=== PATIENT | male | born 1985 | race Caucasian/White ===

== ENCOUNTER 2018-04-03 08:06 | Inpatient (IN) | payer OTHER ==
[2018-04-03] VITALS (23 sets, daily range): BP systolic 80–147; BP diastolic 50–99
--- NOTE | ~2018-04-03 | PR ---
[place], [place] PROGRESS NOTE NAME: [id number] UNIT #: [id number] ROOM: [facility] DOCTOR: RYAN WEAVER MD BIRTHDATE: [birth year] DOS: 04/06/2018 CARDIOLOGY PROGRESS NOTE SUBJECTIVE: The patient was seen at his bedside in the Intensive Care Unit today. He looks somewhat more distressed today than he did yesterday and seems more fatigued. He states that it is a lot of work for him to breathe. After several discussions, it has been decided that he should be transferred to a tertiary care center and he has chosen [facility]. PHYSICAL EXAMINATION: VITAL SIGNS: Today, his pulse is 70 and regular, blood pressure is 105/76. He is afebrile. NECK: Supple. LUNGS: Respirations are per ventilator. He does have coarse breath sounds bilaterally. HEART: Has a regular rhythm with an S4 gallop. He has grade 2/6 systolic murmur along the left sternal border. There are no diastolic murmurs. ABDOMEN: Soft and normally active. EXTREMITIES: Showed trace edema. LABORATORY DATA: White count is 13,100, hemoglobin 8.0. Sodium 143, potassium 3.7, BUN 13, creatinine 0.43. IMPRESSION: 1. Pseudomonas pneumonia. 2. Dilated cardiomyopathy. It is not clear at this point whether this is an ischemic or a nonischemic cardiomyopathy, although a nonischemic cardiomyopathy seems more likely. 3. Gram-positive bacteremia with infected PICC line. PLAN: For now, supportive care is all we could offer from a cardiac standpoint. He is certainly not a candidate for surgical intervention if he would be found to have endocarditis. Accordingly, I would suggest aggressive efforts to manage his infections and stabilize him otherwise. The first goal will be to establish adequate IV access and he is being transferred to [facility] to accomplish this. We thank the hospitalist physicians for asking our advice regarding his care. [place], [place] PROGRESS NOTE NAME: LIZ MURILLO [place] UNIT #: [id number] ROOM: [facility] DOCTOR: RYAN WEAVER MD BIRTHDATE: [birth year] RYAN WEAVER MD CM:PNTRANS [id number] RYAN WEAVER MD 04/10/18 1002 interface
--- NOTE | ~2018-04-03 | EKG ---
[place], [place] ELECTROCARDIOGRAM REPORT NAME: LIZ MURILLO UNIT #: [id number] ROOM: [facility] DOCTOR: YOSEF DRAFT REPORT BIRTHDATE: [birth year] [facility] Test Date: 2018-04-03 Test Time: 15:13:24 Pat Name: LIZ MURILLO Department: Room: [place] [address] Gender: M Applications Developer: Berkley Kamara : 1985 Requested By: RYAN CRABTREE Order Number: [id number] Reading MD: Cristian Hardin MD Measurements Intervals Barnhart Rate: 79 P: 82 SC: 163 QRS: 178 QRSD: 102 T: 86 QT: 427 QTc: 490 Interpretive Statements Poor quality data, interpretation may be affected Pacemaker spikes or artifacts Sinus tachycardia Paired ventricular premature complexes Low voltage with right axis deviation Repol abnrm suggests ischemia, diffuse leads Prolonged QT interval Artifact in lead(s) I,II,III,aVR,aVL,aVF,V1,V2,V3,V4,V5,V6 and baseline wander in lead(s) III,aVF,V3 No previous ECG available for comparison Electronically Signed On 04-04-2018 12:15:21 PST by Cristian Hardin MD CM:EKGRPT:ELECTROCARDIOGRAM REPORT [id number] RYAN NAVAS DRAFT REPORT RYAN CRABTREE
--- NOTE | ~2018-04-03 | PR ---
[place], [place] PROGRESS NOTE NAME[id number] UNIT #: [id number] ROOM: [facility] DOCTOR: GARIMA ALEMAN MD,ASIF BIRTHDATE: [birth year] DOS: 04/06/2018 PULMONARY PROGRESS NOTE SUBJECTIVE: The patient remains on mechanical ventilator without any problems for the last 24 hours. He has been continued on antibiotics for Pseudomonas aeruginosa pneumonia based on the current sensitivity results. Mechanical ventilator satting remains unchanged. The blood culture noted positive for Staph epidermidis at the final results. The family members has asked the patient for transfer to [facility]. The arrangement has been noted in progress. The patient to be transferred to [facility] today. He has been noted with a stable blood pressure, continued on the stress dose with early Cortef. The secretion production has not been noted excessive from the endotracheal aspirate. The oxygen requirement on mechanical ventilator remains the same. The patient was also noted low-grade fever, was noted highest temperature of 99.4 degrees Fahrenheit. The review of systems cannot be completed because of the patient's current traumatic brain injury and current mechanical ventilation. OBJECTIVE: VITAL SIGNS: Temperature 99.6 degree Fahrenheit, respiratory rate 17-18, heart rate of 78-77, blood pressure was 99/66-108/76. Pulse oxygen saturation on 50% oxygen, 98% saturation. HEENT: No new change. Tracheostomy changed in place. CARDIOVASCULAR: S1, S2 audible. LUNGS: The patient was noted with decreased breath sound as previously noted in the right lung. There was no wheezing. ABDOMEN: Soft. PEG tube in place. CENTRAL NERVOUS SYSTEM: Traumatic brain injury, muscle mass loss. The patient has some deformities, which is chronic. VISIBLE SKIN: No lesions or rashes. MENTAL STATUS: At this time, the patient appeared to be somewhat lethargic. LABORATORY DATA: CBC this morning, WBC count 13.1, hemoglobin of 88, platelet count was normal. Blood culture Staph epidermidis from the blood culture. Urinary legionella antigen negative. Respiratory virus panel negative. Two additional sets of blood cultures, which were taken on 04/04/2018 was essentially noted without any bacterial growth. IMPRESSION: 1. The patient with acute respiratory failure with ventilatory support with resistant Pseudomonas aeruginosa. 2. Staph epidermidis bacteremia, most likely contamination, would be considered very likely cause. 3. Chronic traumatic brain injury. 4. Permanent tracheostomy with ventilatory support. 5. 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 6. Cardiomyopathy, which has been known previously, known ischemic. 7. The patient with chronic adrenal insufficiency. [place], [place] PROGRESS NOTE NAME: LIZ MURILLO UNIT #: [id number] ROOM: [facility] DOCTOR: GARIMA ALEMAN MD,ASIF BIRTHDATE: [birth year] PLAN OF MANAGEMENT: No changes from the pulmonary standpoint at this time. Proceed with transfer the patient to the [facility] as planned today. Arrangement has been noted in progress. No changes in the medical management will be needed. Adjustment in antibiotic by the Infectious disease specialist. The patient was started yesterday tobramycin with the Nebulizer treatment, that will be continued. Extended infusion of IV Zosyn for resistant Pseudomonas aeruginosa. Determination possible discontinuation of the vancomycin may be considered. SAIF PAINTING MD CM:PNTRANS [id number] ASIF ALEMAN MD 04/06/18 1305 interface
--- NOTE | ~2018-04-03 | PR ---
[place], [place] PROGRESS NOTE NAME: [id number] UNIT #: [id number] ROOM: [facility] DOCTOR: GARIMA ALEMAN MD,ASIF BIRTHDATE: [birth year] DOS: 04/05/2018 SUBJECTIVE: The patient remains on mechanical ventilator, comfortable, still communicate verbally with that. He has not been noted any hemodynamic instability. He was started on the stress dose of Solu-Cortef yesterday resulting in improvement in the hypotension. Endotracheal secretions had been suctioned out intermittently by the nursing staff. The temperature curve was noted as low-grade. The patient to normal temperature. He has been continued feeding with a pack, which has been replaced recently on this admission as well. The remaining review of systems cannot be completed at this time because of mechanical ventilation use. OBJECTIVE: VITAL SIGNS: Temperature 100.2. The creatinine 99.2 degree Fahrenheit, respiration 16-18, heart rate 77-79, blood pressure of 91/60-99/72. Pulse oxygen saturation recorded as 96% and 50% oxygen on the mechanical ventilator. HEENT: Tracheostomy in place. NECK: Supple. Head was atraumatic. CARDIOVASCULAR: S1, S2 is audible. LUNGS: The patient noted decreased breath sounds on the right lung, but there were no wheezing or crackles. ABDOMEN: Soft, nontender. EXTREMITIES: Without acute edema. MUSCULOSKELETAL: Without acute deformities. CENTRAL NERVOUS SYSTEM: The patient with quadriplegia with a traumatic brain injury. LABORATORY DATA: The culture of the endotracheal aspirate noted with very resistant Pseudomonas aeruginosa. The patient noted intermediate resistance to meropenem and noted sensitive to fluoroquinolones. The BMP that was done this morning, BUN 13, creatinine was normal, glucose 194. CBC this morning; WBC count normal, hemoglobin 7.6 and hematocrit 25.1, platelet count was normal. A 6% segmented neutrophils. Urine culture also noted heavy growth of Proteus mirabilis. The wound culture was noted with evidence of Klebsiella pneumoniae, light growth from the suprapubic area and decubitus wound as well as the backside wound as well. The wound of the left hip for was noted with methicillin-resistant Staphylococcus aureus and Klebsiella pneumoniae. The blood culture were taken n 04/03/2018, one set was noted no bacterial growth and the other one noted gram-positive cocci in clusters. The patient's CT scan of chest was done yesterday noted extensive area of consolidation, infiltration almost all of the right lung was involved in a sparing only the right apex. IMPRESSION: The patient of currently noted with acute respiratory failure with chronic ventilatory support as well and current ventilatory support required for this patient would manage respiratory failure with increased oxygen. 2. Extensive pneumonia with very resistant Pseudomonas aeruginosa well. 3. The patient with anemia of chronic disease, stable. 4. Chronic neurogenic dysphagia. 5. The patient with quadriplegia for this patient as well with a traumatic brain injury, decubitus wound of the left hip for patient in the sacral area as [place], [place] PROGRESS NOTE NAME: LIZ MURILLO UNIT #: [id number] ROOM: [facility] DOCTOR: GARIMA ALEMAN MD,ASIF BIRTHDATE: [birth year] well. PLAN OF TREATMENT: Antibiotic has been adjusted based on the current culture results. Infectious Disease also monitoring the patient for that reason. The patient will be started, tobramycin with the nebulizer formulation twice a day with current Pseudomonas aeruginosa isolation. ____ resistant to multiple antibiotics. The patient would be considered that might for the difficulty of management of Pseudomonas aeruginosa. Continue nutrition support as tolerated. No change in mechanical ventilation be done. Continuation of the Solu-Cortef for the medical management of chronic adrenal insufficiency, current acute infection and sepsis. ASIF PAINTING MD CM:PNTRANS [id number] ASIF ALEMAN MD 04/05/181929 interface
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
[2018-04-03 08:42] LABS: BASO % 0.3 % (0.0-1.0); EOS # 0.4 10*3/uL (0.0-0.4); EOS % 3.7 % (1.0-4.0); HEMATOCRIT 23.6 % (42.0-52.0); HEMOGLOBIN 7.3 g/dl (14.0-18.0); LYMPH # 0.6 10*3/uL (1.3-4.4); MEAN CELL VOLUME 82.5 fl (80.0-94.0); MEAN CORPUSCULAR HGB 25.5 pg (27.0-31.0); MEAN CORPUSCULAR HGB CONC 30.9 g/dl (33.0-37.0); MONO # 0.8 10*3/uL (0.1-1.0); MONO % 8.4 % (3.0-9.0); NEUT # 7.9 10*3/uL (2.3-7.9); NEUT % 81.1 % (47.0-73.0); PLATELET COUNT AUTOMATED 222 10*3/uL (130-400); RED BLOOD COUNT 2.86 10*6/uL (4.50-5.90); RED CELL DISTRI WIDTH 16.7 % (0-14.5); WHITE BLOOD COUNT 9.8 10*3/uL (4.8-10.8)
[2018-04-03 08:55] LABS: BILIRUBIN 1+ (NEGATIVE); BLOOD 3+ (NEGATIVE); CLARITY CLOUDY (CLEAR); COLOR YELLOW (YELLOW); GLUCOSE NEGATIVE (NEGATIVE); KETONE TRACE (NEGATIVE); LEUKO ESTERASE 3+ (NEGATIVE); NITRITE POSITIVE (NEGATIVE); PH 8.5 (5.0-9.0); SPECIFIC GRAVITY 1.015 (1.005-1.030)
[2018-04-03 09:07] LABS: ALBUMIN 2.7 gm/dl (3.1-4.5); ALKALINE PHOSPHATASE 94 U/L (45-117); BUN 19 mg/dl (7-24); CHLORIDE 98 mmol/L (98-107); CREATININE 0.34 mg/dL (0.70-1.30); SGOT/AST 19 IU/L (3-35); SGPT/ALT 32 U/L (12-78); SODIUM 137 mmol/L (136-145); TOTAL PROTEIN 7.9 gm/dL (6.4-8.2)
[2018-04-03 09:13] LABS: BACTERIA 4+; RBC TNTC rbc/hpf (0-2); WBC TNTC wbc/hpf (0-5)
[2018-04-03 12:07] LABS: ABG BASE EXCESS 6.6 mmol/L (-2.0-2.0); ABG HCO3 30.8 mmol/l (22-26); ABG O2 SATURATION 97.5 % (95-97); ARTERIAL BLOOD GAS PCO2 44.4 mmHg (35-45); ARTERIAL BLOOD GAS PH 7.455 (7.35-7.45); ARTERIAL BLOOD GAS PO2 80.1 mmHg (80-90)
[2018-04-03 14:49] LABS: PHOSPHOROUS 3.3 mg/dL (2.5-4.9)
[2018-04-03 14:53] LABS: TROPONIN I 0.199 ng/ml (<0.045)
[2018-04-03] MEDS ORDERED: TYLENOL325 M1 PO (16:34)
[2018-04-03] MEDS ORDERED: ACETADOTE200 MG/1 M NEB ×2 (16:37→16:38)
[2018-04-03] MEDS ORDERED: VENTOLIN 02.5 MG/3 M NEB ×2 (16:42→16:43)
[2018-04-03] MEDS ORDERED: BACLOFEN20 M1 PO (16:45)
[2018-04-03] MEDS ORDERED: DYNA HEX PO (16:47)
[2018-04-03] MEDS ORDERED: COLACE100 MG PO (16:47)
[2018-04-03] MEDS ORDERED: DULCOLAX10 M1 R (16:48)
[2018-04-03] MEDS ORDERED: ELIQUIS5 M1 PO (16:48)
[2018-04-03] MEDS ORDERED: FERROUSAL325 MG PO (16:49)
[2018-04-03] MEDS ORDERED: FLEET ENEMA 13133 ML SC (16:50)
[2018-04-03] MEDS ORDERED: FLUOXETINE HCL10 M1 PO (16:51)
[2018-04-03] MEDS ORDERED: HYDROCORTISONE5 MG PO ×2 (16:52→16:53)
[2018-04-03] MEDS ORDERED: KEPPRA1000 MG PEG (16:55)
[2018-04-03] MEDS ORDERED: HYDROMORPHONE4 MG PO (16:55)
[2018-04-03] MEDS ORDERED: LIDODERM1 EACH T (16:56)
[2018-04-03] MEDS ORDERED: ATIVAN1 MG PO (16:57)
[2018-04-03] MEDS ORDERED: MELATONIN3 MG PO (16:58)
[2018-04-03] MEDS ORDERED: MIDODRINE HCL10 MG PO (16:59)
[2018-04-03] MEDS ORDERED: MELATONIN5 M1 PO (16:59)
[2018-04-03] MEDS ORDERED: MILK OF MA400 MG/52 PO (17:00)
[2018-04-03] MEDS ORDERED: MIRALAX POWDER17 G1 PO (17:01)
[2018-04-03] MEDS ORDERED: NEURONTIN300 MG PO (17:01)
[2018-04-03] MEDS ORDERED: PEPCID20 MG PO (17:02)
[2018-04-03] MEDS ORDERED: SENEXON8.6 M1 PO (17:03)
[2018-04-03] MEDS ORDERED: TRAZODONE100 MG PO (17:04)
[2018-04-03] MEDS ORDERED: ALDACTONE50 M1 PO (17:04)
[2018-04-03] MEDS ORDERED: VITAMIN D5000 UNIT PO (17:05)
[2018-04-03] MEDS ORDERED: ZOFRAN4 MG PO (17:06)
[2018-04-03] MEDS ORDERED: CHLORASEPTIC 1177 ML MM (17:07)
[2018-04-03 18:13] LABS: BASO # 0.1 10*3/uL (0.0-0.1); BASO % 0.5 % (0.0-1.0); EOS # 0.2 10*3/uL (0.0-0.4); EOS % 2.5 % (1.0-4.0); HEMATOCRIT 21.3 % (42.0-52.0); HEMOGLOBIN 6.8 g/dl (14.0-18.0); LYMPH # 0.8 10*3/uL (1.3-4.4); LYMPH % 8.4 % (27.0-41.0); MEAN CELL VOLUME 82.6 fl (80.0-94.0); MEAN CORPUSCULAR HGB 26.4 pg (27.0-31.0); MEAN CORPUSCULAR HGB CONC 31.9 g/dl (33.0-37.0); MONO # 0.8 10*3/uL (0.1-1.0); MONO % 8.1 % (3.0-9.0); NEUT # 7.8 10*3/uL (2.3-7.9); NEUT % 79.9 % (47.0-73.0); PLATELET COUNT AUTOMATED 202 10*3/uL (130-400); RED BLOOD COUNT 2.58 10*6/uL (4.50-5.90); RED CELL DISTRI WIDTH 16.8 % (0-14.5); WHITE BLOOD COUNT 9.7 10*3/uL (4.8-10.8)
[2018-04-04] VITALS (12 sets, daily range): BP systolic 81–99; BP diastolic 51–69
[2018-04-04 00:28] LABS: BASO % 0.4 % (0.0-1.0); EOS # 0.3 10*3/uL (0.0-0.4); EOS % 2.8 % (1.0-4.0); HEMATOCRIT 25.8 % (42.0-52.0); LYMPH # 0.5 10*3/uL (1.3-4.4); LYMPH % 5.7 % (27.0-41.0); MEAN CORPUSCULAR HGB 25.7 pg (27.0-31.0); MEAN PLATELET VOLUME 11.3 fl (9.6-12.3); MONO # 0.6 10*3/uL (0.1-1.0); NEUT # 7.5 10*3/uL (2.3-7.9); NEUT % 83.8 % (47.0-73.0); PLATELET COUNT AUTOMATED 197 10*3/uL (130-400); RED BLOOD COUNT 3.11 10*6/uL (4.50-5.90); RED CELL DISTRI WIDTH 16.6 % (0-14.5)
[2018-04-04 05:48] LABS: BUN 18 mg/dl (7-24); CHLORIDE 106 mmol/L (98-107); CHOLESTEROL 72 mg/dL (<200); CREATININE 0.36 mg/dL (0.70-1.30); HDL CHOLESTEROL 17 mg/dl (40-60); LDL CHOLESTEROL 42 mg/dL (9-159); POTASSIUM 4.1 mmol/L (3.5-5.1); SODIUM 143 mmol/L (136-145); TRIGLYCERIDES 66 mg/dl (<150); VLDL CHOLESTEROL 13 mg/dL (6-40)
[2018-04-04 06:24] LABS: BASO % 0.5 % (0.0-1.0); EOS # 0.2 10*3/uL (0.0-0.4); EOS % 1.8 % (1.0-4.0); HEMATOCRIT 24.5 % (42.0-52.0); HEMOGLOBIN 7.8 g/dl (14.0-18.0); LYMPH # 0.6 10*3/uL (1.3-4.4); LYMPH % 6.8 % (27.0-41.0); MEAN CELL VOLUME 82.5 fl (80.0-94.0); MEAN CORPUSCULAR HGB 26.3 pg (27.0-31.0); MEAN CORPUSCULAR HGB CONC 31.8 g/dl (33.0-37.0); MEAN PLATELET VOLUME 11.6 fl (9.6-12.3); MONO # 0.7 10*3/uL (0.1-1.0); MONO % 7.4 % (3.0-9.0); NEUT # 7.3 10*3/uL (2.3-7.9); NEUT % 83.2 % (47.0-73.0); PLATELET COUNT AUTOMATED 204 10*3/uL (130-400); RED BLOOD COUNT 2.97 10*6/uL (4.50-5.90); RED CELL DISTRI WIDTH 16.6 % (0-14.5); WHITE BLOOD COUNT 8.8 10*3/uL (4.8-10.8)
[2018-04-04 07:00] LABS: ACT PARTIAL THROMBO TIME 26.5 SECONDS (20.8-31.5); INTERNATIONAL NORM RATIO 1.2 (2.0-3.5)
[2018-04-05] VITALS: BP 91/65
[2018-04-05 04:00] VITALS: BP 99/72
[2018-04-05 04:35] LABS: HEMATOCRIT 25.1 % (42.0-52.0); HEMOGLOBIN 7.6 g/dl (14.0-18.0); MEAN CELL VOLUME 82.8 fl (80.0-94.0); MEAN CORPUSCULAR HGB 25.1 pg (27.0-31.0); MEAN CORPUSCULAR HGB CONC 30.3 g/dl (33.0-37.0); MEAN PLATELET VOLUME 11.4 fl (9.6-12.3); PLATELET COUNT AUTOMATED 203 10*3/uL (130-400); RED BLOOD COUNT 3.03 10*6/uL (4.50-5.90); RED CELL DISTRI WIDTH 16.8 % (0-14.5); WHITE BLOOD COUNT 9.3 10*3/uL (4.8-10.8)
[2018-04-05 04:58] LABS: BUN 13 mg/dl (7-24); CHLORIDE 108 mmol/L (98-107); CREATININE 0.33 mg/dL (0.70-1.30); POTASSIUM 3.9 mmol/L (3.5-5.1); SODIUM 142 mmol/L (136-145)
[2018-04-05 05:04] LABS: BASOPHILS 1 % (0-1); TOTAL CELLS COUNTED 100 #CELLS
[2018-04-05 05:05] LABS: PLATELET SUFFICIENCY NORMAL (NORMAL); POLYCHROMASIA SLIGHT
[2018-04-05 08:00] VITALS: BP 91/68
[2018-04-05 12:00] VITALS: BP 99/66
[2018-04-05 12:08] LABS: ALBUMIN 2.5 gm/dl (3.1-4.5); ALKALINE PHOSPHATASE 87 U/L (45-117); BUN 14 mg/dl (7-24); CHLORIDE 105 mmol/L (98-107); CREATININE 0.44 mg/dL (0.70-1.30); POTASSIUM 3.7 mmol/L (3.5-5.1); SGOT/AST 23 IU/L (3-35); SGPT/ALT 50 U/L (12-78); SODIUM 140 mmol/L (136-145); TOTAL PROTEIN 7.2 gm/dL (6.4-8.2)
[2018-04-05 12:45] LABS: ACT PARTIAL THROMBO TIME 23.9 SECONDS (20.8-31.5); INTERNATIONAL NORM RATIO 1.2 (2.0-3.5)
[2018-04-05 16:00] VITALS: BP 95/66
[2018-04-05 20:00] VITALS: BP 95/64
[2018-04-06] VITALS: BP 108/76
[2018-04-06 03:08] LABS: ADENOVIRUS Negative (Negative); INFLUENZA A Negative (Negative); INFLUENZA B Negative (Negative); METAPNEUMOVIRUS Negative (Negative); PARAINFLUENZA 1 Negative (Negative); PARAINFLUENZA 2 Negative (Negative); PARAINFLUENZA 3 Negative (Negative); RHINOVIRUS Negative (Negative); RSV A Negative (Negative); RSV B Negative (Negative)
[2018-04-06 04:00] VITALS: BP 100/71
[2018-04-06 05:04] LABS: HEMATOCRIT 26.6 % (42.0-52.0); MEAN CELL VOLUME 83.4 fl (80.0-94.0); MEAN CORPUSCULAR HGB 25.1 pg (27.0-31.0); MEAN CORPUSCULAR HGB CONC 30.1 g/dl (33.0-37.0); MEAN PLATELET VOLUME 10.9 fl (9.6-12.3); PLATELET COUNT AUTOMATED 229 10*3/uL (130-400); RED BLOOD COUNT 3.19 10*6/uL (4.50-5.90); RED CELL DISTRI WIDTH 16.6 % (0-14.5); WHITE BLOOD COUNT 13.1 10*3/uL (4.8-10.8)
[2018-04-06 05:22] LABS: ALBUMIN 2.4 gm/dl (3.1-4.5); BUN 13 mg/dl (7-24); CHLORIDE 106 mmol/L (98-107); POTASSIUM 3.7 mmol/L (3.5-5.1); SODIUM 143 mmol/L (136-145)
[2018-04-06 05:25] LABS: ALKALINE PHOSPHATASE 77 U/L (45-117); CREATININE 0.43 mg/dL (0.70-1.30); PHOSPHOROUS 2.3 mg/dL (2.5-4.9); SGOT/AST 14 IU/L (3-35); SGPT/ALT 40 U/L (12-78); TOTAL PROTEIN 6.8 gm/dL (6.4-8.2)
[2018-04-06 06:27] LABS: PLATELET SUFFICIENCY NORMAL (NORMAL); SCHISTOCYTES FEW; TOTAL CELLS COUNTED 100 #CELLS
[2018-04-06 08:00] VITALS: BP 105/76
== END 2018-04-06 12:49 | disposition short-term general hospital (02) | DRG 314 ==
LOC: ED 08:06 → ICCU 12:40
PROVIDERS: Emergency Medicine; Internal Medicine; Student in an Organized Health Care Education/Training Program; ADMIT Internal Medicine
PROC: 30233N1 Transfusion of Nonautologous Red Blood Cells into Peripheral Vein, Percutaneous Approach (ICD-10-PCS; principal; 2018-04-03)
PROC: 0D20XUZ Change Feeding Device in Upper Intestinal Tract, External Approach (ICD-10-PCS; principal; 2018-04-03)
PROC: 5A1945Z Respiratory Ventilation, 24-96 Consecutive Hours (ICD-10-PCS; principal; 2018-04-03)
DX: T80.211A Bloodstream infection due to central venous catheter, initial encounter (principal); L89.224 Pressure ulcer of left hip, stage 4; L89.324 Pressure ulcer of left buttock, stage 4; A41.9 Sepsis, unspecified organism; J15.1 Pneumonia due to Pseudomonas; G82.50 Quadriplegia, unspecified; R65.20 Severe sepsis without septic shock; J96.20 Acute and chronic respiratory failure, unspecified whether with hypoxia or hypercapnia; K94.23 Gastrostomy malfunction; N39.0 Urinary tract infection, site not specified; Z99.11 Dependence on respirator [ventilator] status; I50.22 Chronic systolic (congestive) heart failure; E27.40 Unspecified adrenocortical insufficiency; I42.0 Dilated cardiomyopathy; K21.9 Gastro-esophageal reflux disease without esophagitis; N31.9 Neuromuscular dysfunction of bladder, unspecified; L89.152 Pressure ulcer of sacral region, stage 2; D64.9 Anemia, unspecified; R74.8 Abnormal levels of other serum enzymes; R79.82 Elevated C-reactive protein (CRP); R70.0 Elevated erythrocyte sedimentation rate; F41.9 Anxiety disorder, unspecified; F32.9 Major depressive disorder, single episode, unspecified; I27.20 Pulmonary hypertension, unspecified; R13.19 Other dysphagia; D63.8 Anemia in other chronic diseases classified elsewhere; R07.89 Other chest pain; Y84.8 Other medical procedures as the cause of abnormal reaction of the patient, or of later complication, without mention of misadventure at the time of the procedure; R23.3 Spontaneous ecchymoses; Y83.3 Surgical operation with formation of external stoma as the cause of abnormal reaction of the patient, or of later complication, without mention of misadventure at the time of the procedure; S06.9X0A Unspecified intracranial injury without loss of consciousness, initial encounter; X58.XXXA Exposure to other specified factors, initial encounter; Y93.89 Activity, other specified; Y92.89 Other specified places as the place of occurrence of the external cause; Y99.8 Other external cause status; I25.2 Old myocardial infarction; Z86.711 Personal history of pulmonary embolism; Z87.440 Personal history of urinary (tract) infections; Z79.52 Long term (current) use of systemic steroids; Z79.899 Other long term (current) drug therapy; Z87.891 Personal history of nicotine dependence